=== PATIENT | female | born 1995 | race Caucasian/White ===

== ENCOUNTER 2016-03-10 14:16 | Observation (INO) | payer SELFPAY ==
[2016-03-10] VITALS (19 sets, daily range): BP systolic 95–123; RESP 13–18; TEMP 97.7–98.8
[~2016-03-10] VITALS: Ht 167.6 cm; Wt 73.5 kg
[~2016-03-10 14:16] MED LIST: DEXAMETHASONE 4 MG/ML VIAL IV ONE; FENTANYL 100 MCG/2 ML AMP IV ONE; KETOROLAC 30 MG/ML VIAL IV ONE; LIDOCAINE 1% 20ML INFILTRATE ONE; METHYLERGONOVINE MAL 0.2 MG/ML AMP IV ONE; MIDAZOLAM 2 MG/2 ML INJ IV ONE; ONDANSETRON 4 MG VIAL IV PUSH ONE; OXYTOCIN 10 UNITS/ML VIAL IV ONE; PROPOFOL 20 ML VIAL IV ONE; SUCCINYLCHOLINE 20 MG/ML VL IV ONE
[2016-03-10] MEDS ORDERED: DILAUDID 1 MG/ML AMP ONE ×2 (14:53→17:43)
[2016-03-10] MEDS ORDERED: ONDANSETRON 4 MG VIAL ONE (14:54)
[2016-03-10] MEDS ORDERED: SODIUM CHLORIDE 0.9% 1,000 ML ONE (14:54)
[2016-03-10] MEDS ORDERED: SODIUM CHLORIDE 0.9% 2,000 ML ONE (16:20)
[2016-03-10] MEDS ORDERED: MISOPROSTOL 200 MCG TAB PO ONE (16:30)
[2016-03-10] MEDS ORDERED: MISOPROSTOL 200 MCG TAB RECTAL ONE (16:30)
[2016-03-10] MEDS ORDERED: DOXYCYCLINE 100 MG in SODIUM CHLORIDE 0.9% 250 ML IV ONE (17:00)
[2016-03-10] MEDS ORDERED: LACT RINGERS 1,000 ML IV ONE (17:12)
[2016-03-10] MEDS ORDERED: MEPERIDINE 25 MG/ML IV PRN (18:00)
[2016-03-10] MEDS ORDERED: MORPHINE 2 MG/ML SYR IV PRN ×2 (18:00→18:35)
[2016-03-10] MEDS ORDERED: ONDANSETRON 4 MG VIAL IV PRN (18:00)
[2016-03-10] MEDS ORDERED: OXYCODONE 5 MG TAB PO PRN (18:00)
[2016-03-10] MEDS ORDERED: LIDOCAINE 1% BUFFERED 1 ML SYR INTRADERM PRN (18:00)
[2016-03-10] MEDS ORDERED: DILAUDID 1 MG/ML AMP IV PRN (18:00)
[2016-03-10] MEDS ORDERED: MORPHINE 4 MG/ML SYR IV PRN (18:00)
[2016-03-10] MEDS ORDERED: LACT RINGERS 1,000 ML IV SCH ×2 (18:00→18:35)
[2016-03-10] MEDS ORDERED: ONDANSETRON INJ 8 MG in SODIUM CHLORIDE 0.9% 50 ML IV PRN (18:35)
[2016-03-10] MEDS ORDERED: MISOPROSTOL 100 MCG TAB PO ONE (18:35)
[2016-03-10] MEDS ORDERED: KETOROLAC 30 MG/ML VIAL IV ONE (18:35)
[2016-03-10] MEDS ORDERED: ACETAMINOPHEN 325 MG TAB PO PRN (21:05)
[2016-03-10] MEDS ORDERED: SALINE FLUSH 10 ML FLUSH PRN (21:05)
[2016-03-10] MEDS ORDERED: SODIUM CHLORIDE 0.9% FLUSH BAG 500 ML IV PRN (21:05)
[2016-03-10] MEDS ORDERED: ZOLPIDEM 5 MG TAB PO PRN (21:05)
[2016-03-10] MEDS: Ibuprofen 600 MG TAB PO SCH (22:23)
[2016-03-10] MEDS: METHYLERGONOVINE 0.2 MG TAB PO SCH (22:23)
[2016-03-11 00:04] VITALS: BP_SYST 110; RESP 18; TEMP 98.6
[2016-03-11 00:07] VITALS: BMI 26.2
[2016-03-11 04:27] VITALS: BP_SYST 112; RESP 18; TEMP 98.6
[2016-03-11] MEDS: METHYLERGONOVINE 0.2 MG TAB PO SCH (05:35)
[2016-03-11] MEDS: Ibuprofen 600 MG TAB PO SCH (05:35)
[2016-03-11] MEDS ORDERED: SALINE FLUSH 10 ML FLUSH SCH (08:00)
[2016-03-11 08:33] VITALS: BP_SYST 112; RESP 18; TEMP 98.6
== END 2016-03-11 08:06 | disposition home or self-care (01) ==
LOC: ER 14:16 → 3S 19:52 → ER 21:01 → 3S 21:02
PROVIDERS: ADMIT Obstetrics & Gynecology; ATTEND Obstetrics & Gynecology
DX: O03.1 Delayed or excessive hemorrhage following incomplete spontaneous abortion (principal); D64.9 Anemia, unspecified
CPT/HCPCS: 36415; 80053; 84702; 85014; 85018; 85025; 85610; 85730; 86850; 86900; 86901; 88305; 96361; 96374; 96375; 96376